=== PATIENT | male | born 1990 | race Two or more races ===

== ENCOUNTER 2016-09-13 21:45 | Emergency (ER) | payer OTHER ==
[~2016-09-13] VITALS: Ht 188 cm; Wt 79.4 kg
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
[2016-09-13] MEDS ORDERED: FENTANYL PF 100 MCG/2 ML VIAL. IV ONE ×2 (22:15→22:30)
[2016-09-13] MEDS ORDERED: HYDR-971 PO (22:29)
[2016-09-13] MEDS ORDERED: IBUP-1060 PO (22:29)
[2016-09-13 22:56] VITALS: BP 127/71
--- NOTE | 2016-09-14 07:22 | RAD ---
Indication injury, pain. Pain particularly on the right. Single view of the chest was obtained. No prior imaging is available. The heart, pulmonary vessels and mediastinum appear normal. The lungs are clear. No pleural fluid or pneumothorax is seen. The visualized bony structures appear grossly intact. IMPRESSION: Normal single view of the chest
== END 2016-09-13 22:55 | disposition home or self-care (01) ==
LOC: ER 21:45
DX: S20.211A Contusion of right front wall of thorax, initial encounter (principal); V43.92XA Unspecified car occupant injured in collision with other type car in traffic accident, initial encounter; Y93.89 Activity, other specified; Y92.410 Unspecified street and highway as the place of occurrence of the external cause; Y99.8 Other external cause status
CPT/HCPCS: 71010; 96374; 96376; 99284; G0238; J3010